=== PATIENT | female | born 1970 | race Caucasian/White ===

== ENCOUNTER → 2020-10-24 | Outpatient (CLI) | payer BC ==
[2020-10-24 12:52] LABS: HEMOGLOBIN 13.4 gm/dl (12.3-15.3); RED BLOOD COUNT 4.57 M/UL (4.00-5.10); WHITE BLOOD COUNT 5.2 K/UL (4.5-11.0)
[2020-10-24 13:21] LABS: BUN/CREATININE RATIO 16 (0-10)
[2020-10-25 06:10] LABS: HIV SCREEN 4TH GENERATION WRFX Non Reactive (Non Reactive)
[2020-10-25 09:13] LABS: VITAMIN D, 25-HYDROXY 20.1 ng/mL (30.0-100.0)
[2020-10-25 10:13] LABS: HBSAG SCREEN Negative (Negative); HEP A AB, IGM Negative (Negative); HEP B CORE AB, IGM Negative (Negative); HEP C VIRUS AB <0.1 (0.0-0.9); RHEUMATOID ARTHRITIS FACTOR <10.0 IU/mL (0.0-13.9)
[2020-10-25 15:13] LABS: LYME IGG/IGM AB <0.91 ISR (0.00-0.90)
== END ==
LOC: LAB 10:29
PROVIDERS: Nurse Practitioner
DX: R53.83 Other fatigue (principal); M25.551 Pain in right hip; M25.552 Pain in left hip; M16.0 Bilateral primary osteoarthritis of hip; M25.852 Other specified joint disorders, left hip
CPT/HCPCS: 36415; 73522; 80053; 80061; 80074; 81001; 83036; 84443; 84550; 85025; 85652; 86038; 86140; 86431; 87389